=== PATIENT | female | born 1960 | race Caucasian/White ===

== ENCOUNTER → 2018-05-10 16:56 | Emergency (ER) | payer BC ==
[~2018-05-10 16:56] MED LIST: Indomethacin CAP* 25 MG CAP PO ONE; oxyCODONE TAB* 5 MG TAB PO ONE
--- NOTE | 2018-05-10 18:45 | ED ---
Lower Extremity - HPI Summary HPI Summary: Patient complains of pain to left foot and ankle after playing with her cats monday. States she heard a "snap crackle pop". Also states possible gout flareup. Denies fever, cough, sore throat, CP, SOB, N/V/V abdominal pain, change in urine, change in BM. Medical history is HTN, HDL, DM. - History of Current Complaint Chief Complaint: EDExtremityLower Stated Complaint: LEFT FOOT/ANKLE PAIN Time Seen by Provider: 05/10/18 17:32 Hx Obtained From: Patient Mechanism Of Injury: Twisted Onset of Pain: Immediate Onset/Duration: Days Severity Initially: Severe Severity Currently: Severe Pain Intensity: 10 Pain Scale Used: 0-10 Numeric Timing: Constant Location: Is Discrete @ Character Of Pain: Aching, Throbbing Associated Signs And Symptoms: Positive: Negative Aggravating Factor(s): Standing, Ambulation Alleviating Factor(s): Rest Able to Bear Weight: Yes - Allergies/Home Medications Allergies/Adverse Reactions: Allergies Allergy/AdvReac Type Severity Reaction Status Date / Time adhesive Allergy Unknown Verified 05/10/18 17:07 Reaction Details latex Allergy Unknown Verified 05/10/18 17:07 Reaction Details Penicillins Allergy Swelling Verified 05/10/18 17:07 Sulfa (Sulfonamide Allergy Swelling Verified 05/10/18 17:07 Antibiotics) Of Face,Lips,& Throat PMH/Surg Hx/FS Hx/Imm Hx Endocrine/Hematology History: Denies: Hx Anticoagulant Therapy History: Denies: Hx Dialysis Sensory History: Denies: Hx Legally Blind Opthamlomology History: Denies: Hx Eye Prosthesis Neurological History: Denies: Hx Dementia Psychiatric History: Denies: Hx Autism Infectious Disease History: No Infectious Disease History: Denies: Traveled Outside the [place] in Last 30 Days - Social History Alcohol Use: Occasionally Substance Use Type: Reports: None Smoking Status (MU): Unknown if Ever Smoked Review of Systems Constitutional: Negative Eyes: Negative ENT: Negative Positive: Other Respiratory: Negative Gastrointestinal: Negative Genitourinary: Negative Musculoskeletal: Other Skin: Negative Neurological: Negative Psychological: Normal All Other Systems Reviewed And Are Negative: Yes Physical Exam - Summary Physical Exam Summary: No ecchymosis, erythema, swelling, deformity noted to left ankle. Small area of erythema to left MCP joint. Tender to palpation. PMS intact distally. Triage Information Reviewed: Yes Vital Signs On Initial Exam: Initial Vitals Temp Pulse Resp BP Pulse Ox 98.9 F 105 16 159/95 96 05/10/18 17:04 05/10/18 17:04 05/10/18 17:04 05/10/18 17:04 05/10/18 17:04 Vital Signs Reviewed: Yes Appearance: Positive: Well-Appearing Skin: Positive: Warm Head/Face: Positive: Normal Head/Face Inspection Eyes: Positive: Normal Neck: Positive: Supple Respiratory/Lung Sounds: Positive: Clear to Auscultation Cardiovascular: Positive: Normal Abdomen Description: Positive: Nontender Musculoskeletal: Positive: Normal Neurological: Positive: Normal Psychiatric: Positive: Normal AVPU Assessment: Alert - Marlen Coma Scale Best Eye Response: 4 - Spontaneous Best Motor Response: 6 - Obeys Commands Best Verbal Response: 5 - Oriented Coma Scale Total: 15 Diagnostics - Vital Signs Vital Signs Temp Pulse Resp BP Pulse Ox 05/10/18 17:04 98.9 F 105 16 159/95 96 - Laboratory Lab Statement: Any lab studies that have been ordered have been reviewed, and results considered in the medical decision making process. Lower Extremity Course/Dx - Course Course Of Treatment: Patient complains of pain to left foot after playing with her cats monday. States she heard a "snap crackle pop". Also states possible gout flareup. Denies fever, cough, sore throat, CP, SOB, N/V/V abdominal pain, change in urine, change in BM. Medical history is HTN, HDL, DM. Physical exam: No ecchymosis, erythema, swelling, deformity noted to left ankle. Small area of erythema to left MCP joint. Tender to palpation. PMS intact distally. Vital signs within normal limits. X-ray foot negative. Erythema at MCP likely gout. Rx for indomethacin. No prednisone as patient is diabetic. - Diagnoses Provider Diagnoses: Gout, Ankle sprain Discharge - Sign-Out/Discharge Documenting (check all that apply): Patient Departure Patient Received Moderate/Deep Sedation with Procedure: No - Discharge Plan Condition: Stable Disposition: HOME Prescriptions: HYDROcodone/ACETAMIN 5-325 MG* [[place] 5-325 TAB*] 1 tab PO BID 2 Days #4 tab MDD 2 tabs Indomethacin CAP* [Indocin CAP*] 50 mg PO TID PRN 4 Days #12 cap PRN Reason: Pain Patient Education Materials: Ankle Sprain (DC), Low Purine Diet (ED), Gout (ED) , Ankle Stirrup Splint (ED) Referrals: Nii Mustafa MD [Primary Care Provider] - Additional Instructions: Follow-up with primary care for gout management. Follow-up with orthopedics Dr. Rodrigues for ankle pain if symptoms persist more than 5 days. Return to the ED for any new or worsening symptoms. - Billing Disposition and Condition Condition: STABLE Disposition: Home
[2018-05-10 19:03] VITALS: BP 149/89
== END | disposition home or self-care (01) ==
LOC: ED 16:56
DX: M10.072 Idiopathic gout, left ankle and foot (principal); S93.402A Sprain of unspecified ligament of left ankle, initial encounter; X58.XXXA Exposure to other specified factors, initial encounter; Y92.9 Unspecified place or not applicable; Z91.040 Latex allergy status; Z88.0 Allergy status to penicillin; Z88.2 Allergy status to sulfonamides; Z91.048 Other nonmedicinal substance allergy status
CPT/HCPCS: 99282; A9270-GY